=== PATIENT | female | born 1975 | race Caucasian/White ===

== ENCOUNTER 2017-02-07 20:16 | Emergency (ER) | payer OTHER ==
--- NOTE | 2017-02-07 21:15 | DIAGNOSTIC IMAGING REPORT ---
PROCEDURE: XR WRIST MIN 3 VIEWS - LEFT INDICATION: TRAUMA/INJURY TECHNIQUE: Five views. COMPARISON: None. FINDINGS: Osseous structures and joint spaces are normal. If an occult scaphoid fracture is suspected clinically, follow-up examination in 10-14 days may be of assistance. IMPRESSION: 1. Normal left wrist.
--- NOTE | 2017-02-07 21:22 | ED NURSING NOTES ---
Clinical Report - Nurses [facility] [address] [place] [address] 02/07/2017 20:17 [id number] Triage time 20:29. Chief Complaint: INJURY TO LEFT WRIST. --20:35 TonyaB, R.N. 20:29 02/07/17. BP: 118/74. HR: 87. RR: 18. O2 saturation: 100%. Temp: 98.3 F. Pain level now: 08/29. --20:35 TonyaB, R.N. Acuity: LEVEL 4. --20:35 TonyaB, R.N. Weight: 70.3 kg. Height/Length: 65 inches. BMI: 25.8. --20:32 TonyaB, R.N. Medications Advair Diskus Inhalation. Albuterol Inhalation. DuoNeb Inhalation. Furosemide Oral. Potassium Oral. PredniSONE Oral 20 mg, 2x a day, last dose this AM. Spiriva HandiHaler Inhalation. --20:31 TonyaB, R.N. Gabapentin Oral. --20:31 TonyaB, R.N. Omeprazole Oral. --20:31 TonyaB, R.N. Singulair Oral. --20:31 TonyaB, R.N. Allergies ASA. Paper tape. Paxil. --20:30 TonyaB, R.N. History Arrived by private vehicle. Historian: patient. Accompanied by family. This occurred just prior to arrival. ( got it caught in a door at home). 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 PAST MEDICAL HX: Tetanus status: up-to-date. Immunizations: up-to-date. SOCIAL HX: Never smoker. Occasional alcohol use. No drug use. No infectious disease exposure. FALL RISK ASSESSMENT: Fall risk assessment completed. No fall risk identified. NUTRITIONAL RISK ASSESSMENT: The nutritional risk assessment revealed no deficiencies. FUNCTIONAL ASSESSMENT: Functional assessment: no impairments noted. LEARNING NEEDS ASSESSMENT: The learning needs assessment revealed no barriers. SKIN INTEGRITY ASSESSMENT: Skin integrity risk assessment completed. No skin integrity risk identified. --20:35 TonyaB, R.N. ADDITIONAL SURGERIES: Hysterectomy. --20:32 Mely Ortega Interventions ID band on patient. To treatment room. --20:35 Mely Ortega PHYSICAL ASSESSMENT Ambulatory to room. GENERAL / NEURO / PSYCH: Oriented X 4. Alert. EXTREMITIES: Capillary refill is less than 2 seconds in the extremities. Extremity pulses are within normal limits. Neuro-vascular status intact to the extremity. Right wrist: tenderness and swelling. SKIN: Skin intact. Skin is warm and dry. --20:35 Mely Ortega NURSING PROGRESS NOTES 21:31 02/07/2017 Percocet (Oxycodone-Acetaminophen) PO 5/325 mg Tablets 1 tab given. Allergies verified, confirmed 5 rights and sedative warning given to the patient. --21:31 Mariama Ortega. Upper extremity splint applied to left wrist by nurse. ( w). --21:32 Mely Ortega DISPOSITION / DISCHARGE Departure time: 21:33. No learning barriers present. Discharge instructions provided and reviewed with the patient. Reviewed medication(s) side effects, precautions, dosing and course information. Prescription(s) given to the patient. Treatments reviewed. Reviewed referrals. Activity restrictions reviewed. Follow up contact number. Patient verbalized understanding. Written instructions provided in Estonian. No diet instructions, note given or stop smoking instructions. The patient was discharged by the physician dental assistant medical assistant. She was discharged home and accompanied by family. She left the Emergency Department ambulatory and via private vehicle. Family member driving. FALL RISK ASSESSMENT: Fall risk assessment completed. No fall risk identified. --21:33 Mely Ortega 21:32 02/07/17. BP: 126/78. HR: 88. RR: 18. O2 saturation: 99%. Temp: 98.7 F. Pain level now: 06/29. --21:33 Mely Ortega Locked/Released at 02/07/2017 21:37 by Mely Ortega
--- NOTE | 2017-02-07 21:22 | ED ORDER SUMMARY ---
..... Patient: TREVA POLANCO OrderSheet [facility] VisitID: [id number] [address] [place] [address] 41y, F Registration Date/Time: 02/07/2017 ORDER SHEET Weight: 70.3 kg Allergies: ASA, Paper tape, Paxil GENERAL ORDERS: Wrist 3 or 4V Left Urgent (20:43 02/07/2017 EKoroleva P.A.-C) (Ack 20:47 [facility] ER Vapor Coater) (21:25 TBowen R.N.) Splint (UE) (Left) (VELCRO WRIST) (21:03 02/07/2017 EKoroleva P.A.-C) (21:25 TBowen R.N.) MEDICATION ORDERS: Percocet PO 5/325 mg (HIGH ALERT MEDICATION) (20:43 02/07/2017 EKoroleva P.A.-C) (21:31 TBowen R.N.) IV FLUIDS: ORDER SHEET NOTES: [Electronically signed by Yas Gomez R.N. (21:37 02/07/2017)] [Electronically signed by Silvia Villegas P.A.-C (22:13 02/07/2017)] [Electronically locked/signed by Yas Gomez R.N. (21:37 02/07/2017)]
--- NOTE | 2017-02-07 21:22 | ED ORDER SUMMARY ---
..... 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 (21:37 02/07/2017)] [Electronically signed by Silvia Villegas P.A.-C (22:13 02/07/2017)] [Electronically locked/signed by Yas Gomez R.N. (21:37 02/07/2017)]
--- NOTE | 2017-02-07 21:22 | ED CLINICAL REPORT ---
Clinical Report - Physicians/Mid Levels [facility] [address] [place] [address] 02/07/2017 20:17 [id number] Time Seen: 2016. Arrived- By private vehicle. Historian- patient. HISTORY OF PRESENT ILLNESS Chief Complaint: Injury to the left wrist. The injury happened just prior to arrival. Occurred at home. The patient sustained a direct blow. ( Patient reports a large dog, got her hand caught in a doorprior to arrival. She is right-hand dominant of injury to the left wrist. Ice right to arrival. Pain with movement. No other injuries.). REVIEW OF SYSTEMS The patient sustained a laceration. She has had swelling. No tingling or weakness. All systems otherwise negative, except as recorded above. PAST HISTORY The patient's dominant hand is the right. She has not had a prior injury to the same area. SOCIAL HISTORY Never smoker. Alcohol use. No drug use. ADDITIONAL NOTES The nursing notes have been reviewed. PHYSICAL EXAM Vital Signs: 02/07/2017 20:29 BP: 118/74. HR: 87. RR: 18. O2 saturation: 100%. Temp: 98.3 F. Pain level now: 10/10. Appearance: Alert. Head: Head atraumatic. ENT: Nose normal. Neck: Normal inspection. CVS: Normal heart rate and rhythm. Heart sounds normal. Respiratory: No respiratory distress. Chest nontender. Abdomen: No visible injury. Skin: Skin warm. Skin intact. Extremities: Left wrist. (dorsal central pain with swelling, pain with any movement, no snuff box tenderness, no laceration). Left distal radius. No tenderness. Hypothenar eminence, left hand: No tenderness or laceration. Left palm: No tenderness or laceration. No hand injury. Neuro, Vascular and Tendons: Vascular status intact. No pulse deficit present. Capillary refill not prolonged. Motor intact. Neuro: Oriented X 3. LABS, X-RAYS, AND EKG Lt Wrist X-ray: (IMPRESSION: 1. Normal left wrist. Electronically Final signed by:Marin Montreo MD 02/07/2017 9:12:25 PM). PROGRESS AND PROCEDURES Splint Application: Left wrist Velcro, ns intact post applicatin. Course of Care: patient placed in a splint for calm, stable, no snuffbox tenderness. Neg xr, and no signs of fx, or underlying laceration, or secondary sign of infection. Patient is stable. Physical exam findings are improved. Symptoms better. Patient/family counseled. Disposition: Discharged. CLINICAL IMPRESSION Contusion to the left wrist. INSTRUCTIONS Apply ice. Elevate affected areas above chest level. Limit use of your left hand for five days. Prescription Medications: Hydrocodone/APAP 5mg / 325mg: take 1 orally every 8 hours as needed for pain. Dispense twelve (12). No refill. Follow-up: Follow up with your doctor in five days as needed. (Electronically signed by Silvia Villegas P.A.-C 02/07/2017 22:13)
--- NOTE | 2017-02-07 21:22 | ED CLINICAL REPORT ---
Clinical Report - Physicians/Mid Levels [facility] [address] [place] [address] 02/07/2017 20:17 [id number] Time Seen: 2016. Arrived- By private vehicle. Historian- patient. HISTORY OF PRESENT ILLNESS Chief Complaint: Injury to the left wrist. The injury happened just prior to arrival. Occurred at home. The patient sustained a direct blow. ( Patient reports a large dog, got her hand caught in a doorprior to arrival. She is right-hand dominant of injury to the left wrist. Ice right to arrival. Pain with movement. No other injuries.). REVIEW OF SYSTEMS The patient sustained a laceration. She has had swelling. No tingling or weakness. All systems otherwise negative, except as recorded above. PAST HISTORY The patient's dominant hand is the right. She has not had a prior injury to the same area. SOCIAL HISTORY Never smoker. Alcohol use. No drug use. ADDITIONAL NOTES The nursing notes have been reviewed. PHYSICAL EXAM Vital Signs: 02/07/2017 20:29 BP: 118/74. HR: 87. RR: 18. O2 saturation: 100%. Temp: 98.3 F. Pain level now: 10/10. Appearance: Alert. Head: Head atraumatic. ENT: Nose normal. Neck: Normal inspection. CVS: Normal heart rate and rhythm. Heart sounds normal. Respiratory: No respiratory distress. Chest nontender. Abdomen: No visible injury. Skin: Skin warm. Skin intact. Extremities: Left wrist. (dorsal central pain with swelling, pain with any movement, no snuff box tenderness, no laceration). Left distal radius. No tenderness. Hypothenar eminence, left hand: No tenderness or laceration. Left palm: No tenderness or laceration. No hand injury. Neuro, Vascular and Tendons: Vascular status intact. No pulse deficit present. Capillary refill not prolonged. Motor intact. Neuro: Oriented X 3. LABS, X-RAYS, AND EKG Lt Wrist X-ray: (IMPRESSION: 1. Normal left wrist. Electronically Final signed by:Marin Montero MD 02/07/2017 9:12:25 PM). PROGRESS AND PROCEDURES Splint Application: Left wrist Velcro, ns intact post applicatin. Course of Care: patient placed in a splint for calm, stable, no snuffbox tenderness. Neg xr, and no signs of fx, or underlying laceration, or secondary sign of infection. Patient is stable. Physical exam findings are improved. Symptoms better. Patient/family counseled. Disposition: Discharged. CLINICAL IMPRESSION Contusion to the left wrist. INSTRUCTIONS Apply ice. Elevate affected areas above chest level. Limit use of your left hand for five days. Prescription Medications: Hydrocodone/APAP 5mg / 325mg: take 1 orally every 8 hours as needed for pain. Dispense twelve (12). No refill. Follow-up: Follow up with your doctor in five days as needed. (Electronically signed by Silvia Villegas P.A.-C 02/07/2017 22:13)
--- NOTE | 2017-02-07 21:22 | ED NURSING NOTES ---
Clinical Report - Nurses [facility] [address] [place] [address] 02/07/2017 20:17 [id number] Triage time 20:29. Chief Complaint: INJURY TO LEFT WRIST. --20:35 TonyaB, R.N. 20:29 02/07/17. BP: 118/74. HR: 87. RR: 18. O2 saturation: 100%. Temp: 98.3 F. Pain level now: 08/29. --20:35 TonyaB, R.N. Acuity: LEVEL 4. --20:35 TonyaB, R.N. Weight: 70.3 kg. Height/Length: 65 inches. BMI: 25.8. --20:32 TonyaB, R.N. Medications Advair Diskus Inhalation. Albuterol Inhalation. DuoNeb Inhalation. Furosemide Oral. Potassium Oral. PredniSONE Oral 20 mg, 2x a day, last dose this AM. Spiriva HandiHaler Inhalation. --20:31 TonyaB, R.N. Gabapentin Oral. --20:31 TonyaB, R.N. Omeprazole Oral. --20:31 TonyaB, R.N. Singulair Oral. --20:31 TonyaB, R.N. Allergies ASA. Paper tape. Paxil. --20:30 TonyaB, R.N. History Arrived by private vehicle. Historian: patient. Accompanied by family. This occurred just prior to arrival. ( got it caught in a door at home). 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 PAST MEDICAL HX: Tetanus status: up-to-date. Immunizations: up-to-date. SOCIAL HX: Never smoker. Occasional alcohol use. No drug use. No infectious disease exposure. FALL RISK ASSESSMENT: Fall risk assessment completed. No fall risk identified. NUTRITIONAL RISK ASSESSMENT: The nutritional risk assessment revealed no deficiencies. FUNCTIONAL ASSESSMENT: Functional assessment: no impairments noted. LEARNING NEEDS ASSESSMENT: The learning needs assessment revealed no barriers. SKIN INTEGRITY ASSESSMENT: Skin integrity risk assessment completed. No skin integrity risk identified. --20:35 TonyaB, R.N. ADDITIONAL SURGERIES: Hysterectomy. --20:32 Mely Ortega Interventions ID band on patient. To treatment room. --20:35 Mely Ortega PHYSICAL ASSESSMENT Ambulatory to room. GENERAL / NEURO / PSYCH: Oriented X 4. Alert. EXTREMITIES: Capillary refill is less than 2 seconds in the extremities. Extremity pulses are within normal limits. Neuro-vascular status intact to the extremity. Right wrist: tenderness and swelling. SKIN: Skin intact. Skin is warm and dry. --20:35 Mely Ortega NURSING PROGRESS NOTES 21:31 02/07/2017 Percocet (Oxycodone-Acetaminophen) PO 5/325 mg Tablets 1 tab given. Allergies verified, confirmed 5 rights and sedative warning given to the patient. --21:31 Mariama Ortega. Upper extremity splint applied to left wrist by nurse. ( w). --21:32 Mely Ortega DISPOSITION / DISCHARGE Departure time: 21:33. No learning barriers present. Discharge instructions provided and reviewed with the patient. Reviewed medication(s) side effects, precautions, dosing and course information. Prescription(s) given to the patient. Treatments reviewed. Reviewed referrals. Activity restrictions reviewed. Follow up contact number. Patient verbalized understanding. Written instructions provided in Korean. No diet instructions, note given or stop smoking instructions. The patient was discharged by the physician language assistant. She was discharged home and accompanied by family. She left the Emergency Department ambulatory and via private vehicle. Family member driving. FALL RISK ASSESSMENT: Fall risk assessment completed. No fall risk identified. --21:33 Mely Ortega 21:32 02/07/17. BP: 126/78. HR: 88. RR: 18. O2 saturation: 99%. Temp: 98.7 F. Pain level now: 06/29. --21:33 Mely Ortega Locked/Released at 02/07/2017 21:37 by Mely Ortega
--- NOTE | 2017-02-07 22:13 | ED DISCHARGE INSTRUCTIONS ---
Patient: TREVA POLANCO General Instructions [facility] VisitID: [id number] [place] [address] 41y, F Registration Date/Time: 02/07/2017 Contusion to the left wrist. INSTRUCTIONS Apply ice. Elevate affected areas above chest level. Limit use of your left hand for five days. Prescription Medications: Hydrocodone/APAP 5mg / 325mg: take 1 orally every 8 hours as needed for pain. Dispense twelve (12). No refill. Follow-up: Follow up with your doctor in five days as needed. ADDITIONAL INFORMATION Contusion:Upper Extremity You have a contusion of your upper extremity (arm, wrist, hand or fingers). This causes local pain, swelling and sometimes bruising. There are no broken bones. This injury takes a few days to a few weeks to heal. A sling may be provided for comfort and arm support. Home Care: 1) Keep your arm elevated to reduce pain and swelling. This is very important during the first 48 hours. 2) Apply an ice pack (ice cubes in a plastic bag, wrapped in a towel) over the injured area for 20 minutes every 1-2 hours the first day for pain relief. Continue this 3-4 times a day until the pain and swelling goes away. 3) You may use acetaminophen (Tylenol) or ibuprofen (Motrin, Advil) to control pain, unless another pain medicine was prescribed. [ NOTE : If you have chronic liver or kidney disease or ever had a stomach ulcer or GI bleeding, talk with your doctor before using these medicines.] 4) If a sling was provided, you may remove it to shower or bathe. Do not wear it for more than one week or it may cause joint stiffness. Follow Up with your doctor or this facility if you are not starting to improve within the next THREE days. [NOTE: If X-rays were taken, they will be reviewed by a radiologist. You will be notified of any new findings that may affect your care.] Get Prompt Medical Attention if any of the following occur: -- Pain or swelling increases -- Redness, warmth or drainage -- Hand or fingers becomes cold, blue, numb or tingly Contusion: Hand You have a CONTUSION of your hand. This causes local pain, swelling and sometimes bruising. There are no broken bones. This injury takes from a few days to a few weeks to heal. Home Care: 1) Keep your arm elevated to reduce pain and swelling. This is very important during the first 48 hours. 2) Apply an ice pack (ice cubes in a plastic bag, wrapped in a towel) over the injured area for 20 minutes every 1-2 hours the first day. You should continue with ice packs 3-4 times a day for the next two days. Continue the use of ice packs for relief of pain and swelling as needed. 3) You may use acetaminophen (Tylenol) or ibuprofen (Motrin, Advil) to control pain, unless another pain medicine was prescribed. [ NOTE : If you have chronic liver or kidney disease or ever had a stomach ulcer or GI bleeding, talk with your doctor before using these medicines.] Follow Up with your doctor or this facility if you are not starting to improve within the next THREE days. [NOTE: If X-rays were taken, they will be reviewed by a radiologist. You will be notified of any new findings that may affect your care.] Get Prompt Medical Attention if any of the following occur: -- Pain or swelling increases -- Redness, warmth or drainage -- Hand or fingers becomes cold, blue, numb or tingly Hydrocodone Bitartrate, Acetaminophen Oral tablet What is this medicine? ACETAMINOPHEN; HYDROCODONE (a set a SERINA luis fen; feliciano droe KOE done) is a pain reliever. It is used to treat mild to moderate pain. How should I use this medicine? Take this medicine by mouth. Swallow it with a full glass of water. Follow the directions on the prescription label. If the medicine upsets your stomach, take the medicine with food or milk. Do not take more than you are told to take. Talk to your dental laboratory assistant regarding the use of this medicine in children. This medicine is not approved for use in children. What side effects may I notice from receiving this medicine? Side effects that you should report to your doctor or health home care coordinator as soon as possible: allergic reactions like skin rash, itching or hives, swelling of the face, lips, or tongue breathing problems confusion feeling faint or lightheaded, falls stomach pain yellowing of the eyes or skin Side effects that usually do not require medical attention (report to your doctor or health home care coordinator if they continue or are bothersome): nausea, vomiting stomach upset What may interact with this medicine? alcohol antihistamines isoniazid medicines for depression, anxiety, or psychotic disturbances medicines for sleep muscle relaxants naltrexone narcotic medicines (opiates) for pain phenobarbital ritonavir tramadol What if I miss a dose? If you miss a dose, take it as soon as you can. If it is almost time for your next dose, take only that dose. Do not take double or extra doses. Where should I keep my medicine? Keep out of the reach of children. This medicine can be abused. Keep your medicine in a safe place to protect it from theft. Do not share this medicine with anyone. Selling or giving away this medicine is dangerous and against the law. Store at room temperature between 15 and 30 degrees C (59 and 86 degrees F). Protect from light. Keep container tightly closed. Throw away any unused medicine after the expiration date. Discard unused medicine and used packaging carefully. Pets and children can be harmed if they find used or lost packages. What should I tell my health care provider before I take this medicine? They need to know if you have any of these conditions: brain tumor Crohn's disease, inflammatory bowel disease, or ulcerative colitis drink more than 3 alcohol-containing drinks per day drug abuse or addiction head injury heart or circulation problems kidney disease or problems going to the bathroom liver disease lung disease, asthma, or breathing problems an unusual or allergic reaction to acetaminophen, hydrocodone, other opioid analgesics, other medicines, foods, dyes, or preservatives or trying to get breast-feeding What should I watch for while using this medicine? Tell your doctor or health home care coordinator if your pain does not go away, if it gets worse, or if you have new or a different type of pain. You may develop tolerance to the medicine. Tolerance means that you will need a higher dose of the medicine for pain relief. Tolerance is normal and is expected if you take the medicine for a long time. Do not suddenly stop taking your medicine because you may develop a severe reaction. Your body becomes used to the medicine. This does NOT mean you are addicted. Addiction is a behavior related to getting and using a drug for a non-medical reason. If you have pain, you have a medical reason to take pain medicine. Your doctor will tell you how much medicine to take. If your doctor wants you to stop the medicine, the dose will be slowly lowered over time to avoid any side effects. You may get drowsy or dizzy when you first start taking the medicine or change doses. Do not drive, use machinery, or do anything that may be dangerous until you know how the medicine affects you. Stand or sit up slowly. There are different types of narcotic medicines (opiates) for pain. If you take more than one type at the same time, you may have more side effects. Give your health care provider a list of all medicines you use. Your doctor will tell you how much medicine to take. Do not take more medicine than directed. Call emergency for help if you have problems breathing. The medicine will cause constipation. Try to have a bowel movement at least every 2 to 3 days. If you do not have a bowel movement for 3 days, call your doctor or health home care coordinator. Too much acetaminophen can be very dangerous. Do not take Tylenol (acetaminophen) or medicines that contain acetaminophen with this medicine. Many non-prescription medicines contain acetaminophen. Always read the labels carefully. You have been given the following additional information: Contusion, Upper Extremity Contusion, Hand Hydrocodone Bitartrate, Acetaminophen Oral tablet Limit use of your left hand for five days. (Electronically signed by Silvia Villegas P.A.-C 02/07/2017 22:13)
--- NOTE | 2017-02-07 22:13 | ED MAR SUMMARY ---
..... Medication Administration Record [facility] [address] [place] [address] Patient: TREVA POLANCO Visit ID: [id number] 41y, F Weight: 70.3 kg Height/Length: 65 in BMI: 25.8 ALLERGIES: ASA, Paper tape, Paxil Given 21:31 02/07/2017 Mely Ortega Medication Administered: PERCOCET [PO] (OXYCODONE-ACETAMINOPHEN), Dose: 1 tab 5/325 mg Tablets PO. Medication Ordered: Percocet PO 5/325 mg (HIGH ALERT MEDICATION).
--- NOTE | 2017-02-07 22:13 | ED MAR SUMMARY ---
..... Medication Administration Record [facility] [address] [place] [address] Patient: TREVA POLANCO Visit ID: [id number] 41y, F Weight: 70.3 kg Height/Length: 65 in BMI: 25.8 ALLERGIES: ASA, Paper tape, Paxil Given 21:31 02/07/2017 Mely Ortega Medication Administered: PERCOCET [PO] (OXYCODONE-ACETAMINOPHEN), Dose: 1 tab 5/325 mg Tablets PO. Medication Ordered: Percocet PO 5/325 mg (HIGH ALERT MEDICATION).
--- NOTE | 2017-02-07 22:13 | ED MED RECONCILIATION SUMMARY ---
Patient: TREVA POLANCO Medication Reconciliation Report [facility] VisitID: [id number] [address] [place] [address] 41y, F Registration Date/Time: 02/07/2017 Weight: 70.3 kg Height/Length: 65 in. BMI: 25.8 ALLERGIES: ASA, Paper tape, Paxil The patient's Home Medications are listed below: THE FOLLOWING MEDICATIONS NEED TO BE RECONCILED: Advair Diskus Inhalation Albuterol Inhalation DuoNeb Inhalation Furosemide Oral Gabapentin Oral Omeprazole Oral Potassium Oral PredniSONE Oral 20 mg, 2x a day, last dose this AM Singulair Oral Spiriva HandiHaler Inhalation The source(s) of the original Home Medication information: Not obtained. The following Medications were given to the patient in the Emergency Department: Percocet [PO] PO 1 tab, administered: 02/07/2017 9:31:00 PM The following Medications were prescribed to the patient: Hydrocodone/APAP 5mg / 325mg: take 1 orally every 8 hours as needed for pain. Dispense twelve (12). No refill. -- Silvia Villegas PZane
--- NOTE | 2017-02-07 22:13 | ED DISCHARGE INSTRUCTIONS ---
Patient: TREVA POLANCO General Instructions [facility] VisitID: [id number] [place] [address] 41y, F Registration Date/Time: 02/07/2017 Contusion to the left wrist. INSTRUCTIONS Apply ice. Elevate affected areas above chest level. Limit use of your left hand for five days. Prescription Medications: Hydrocodone/APAP 5mg / 325mg: take 1 orally every 8 hours as needed for pain. Dispense twelve (12). No refill. Follow-up: Follow up with your doctor in five days as needed. ADDITIONAL INFORMATION Contusion:Upper Extremity You have a contusion of your upper extremity (arm, wrist, hand or fingers). This causes local pain, swelling and sometimes bruising. There are no broken bones. This injury takes a few days to a few weeks to heal. A sling may be provided for comfort and arm support. Home Care: 1) Keep your arm elevated to reduce pain and swelling. This is very important during the first 48 hours. 2) Apply an ice pack (ice cubes in a plastic bag, wrapped in a towel) over the injured area for 20 minutes every 1-2 hours the first day for pain relief. Continue this 3-4 times a day until the pain and swelling goes away. 3) You may use acetaminophen (Tylenol) or ibuprofen (Motrin, Advil) to control pain, unless another pain medicine was prescribed. [ NOTE : If you have chronic liver or kidney disease or ever had a stomach ulcer or GI bleeding, talk with your doctor before using these medicines.] 4) If a sling was provided, you may remove it to shower or bathe. Do not wear it for more than one week or it may cause joint stiffness. Follow Up with your doctor or this facility if you are not starting to improve within the next THREE days. [NOTE: If X-rays were taken, they will be reviewed by a radiologist. You will be notified of any new findings that may affect your care.] Get Prompt Medical Attention if any of the following occur: -- Pain or swelling increases -- Redness, warmth or drainage -- Hand or fingers becomes cold, blue, numb or tingly Contusion: Hand You have a CONTUSION of your hand. This causes local pain, swelling and sometimes bruising. There are no broken bones. This injury takes from a few days to a few weeks to heal. Home Care: 1) Keep your arm elevated to reduce pain and swelling. This is very important during the first 48 hours. 2) Apply an ice pack (ice cubes in a plastic bag, wrapped in a towel) over the injured area for 20 minutes every 1-2 hours the first day. You should continue with ice packs 3-4 times a day for the next two days. Continue the use of ice packs for relief of pain and swelling as needed. 3) You may use acetaminophen (Tylenol) or ibuprofen (Motrin, Advil) to control pain, unless another pain medicine was prescribed. [ NOTE : If you have chronic liver or kidney disease or ever had a stomach ulcer or GI bleeding, talk with your doctor before using these medicines.] Follow Up with your doctor or this facility if you are not starting to improve within the next THREE days. [NOTE: If X-rays were taken, they will be reviewed by a radiologist. You will be notified of any new findings that may affect your care.] Get Prompt Medical Attention if any of the following occur: -- Pain or swelling increases -- Redness, warmth or drainage -- Hand or fingers becomes cold, blue, numb or tingly Hydrocodone Bitartrate, Acetaminophen Oral tablet What is this medicine? ACETAMINOPHEN; HYDROCODONE (a set a SERINA luis fen; feliciano droe KOE done) is a pain reliever. It is used to treat mild to moderate pain. How should I use this medicine? Take this medicine by mouth. Swallow it with a full glass of water. Follow the directions on the prescription label. If the medicine upsets your stomach, take the medicine with food or milk. Do not take more than you are told to take. Talk to your supervisor assembly and packing regarding the use of this medicine in children. This medicine is not approved for use in children. What side effects may I notice from receiving this medicine? Side effects that you should report to your doctor or health daytime caregiver as soon as possible: allergic reactions like skin rash, itching or hives, swelling of the face, lips, or tongue breathing problems confusion feeling faint or lightheaded, falls stomach pain yellowing of the eyes or skin Side effects that usually do not require medical attention (report to your doctor or health daytime caregiver if they continue or are bothersome): nausea, vomiting stomach upset What may interact with this medicine? alcohol antihistamines isoniazid medicines for depression, anxiety, or psychotic disturbances medicines for sleep muscle relaxants naltrexone narcotic medicines (opiates) for pain phenobarbital ritonavir tramadol What if I miss a dose? If you miss a dose, take it as soon as you can. If it is almost time for your next dose, take only that dose. Do not take double or extra doses. Where should I keep my medicine? Keep out of the reach of children. This medicine can be abused. Keep your medicine in a safe place to protect it from theft. Do not share this medicine with anyone. Selling or giving away this medicine is dangerous and against the law. Store at room temperature between 15 and 30 degrees C (59 and 86 degrees F). Protect from light. Keep container tightly closed. Throw away any unused medicine after the expiration date. Discard unused medicine and used packaging carefully. Pets and children can be harmed if they find used or lost packages. What should I tell my health care provider before I take this medicine? They need to know if you have any of these conditions: brain tumor Crohn's disease, inflammatory bowel disease, or ulcerative colitis drink more than 3 alcohol-containing drinks per day drug abuse or addiction head injury heart or circulation problems kidney disease or problems going to the bathroom liver disease lung disease, asthma, or breathing problems an unusual or allergic reaction to acetaminophen, hydrocodone, other opioid analgesics, other medicines, foods, dyes, or preservatives or trying to get breast-feeding What should I watch for while using this medicine? Tell your doctor or health daytime caregiver if your pain does not go away, if it gets worse, or if you have new or a different type of pain. You may develop tolerance to the medicine. Tolerance means that you will need a higher dose of the medicine for pain relief. Tolerance is normal and is expected if you take the medicine for a long time. Do not suddenly stop taking your medicine because you may develop a severe reaction. Your body becomes used to the medicine. This does NOT mean you are addicted. Addiction is a behavior related to getting and using a drug for a non-medical reason. If you have pain, you have a medical reason to take pain medicine. Your doctor will tell you how much medicine to take. If your doctor wants you to stop the medicine, the dose will be slowly lowered over time to avoid any side effects. You may get drowsy or dizzy when you first start taking the medicine or change doses. Do not drive, use machinery, or do anything that may be dangerous until you know how the medicine affects you. Stand or sit up slowly. There are different types of narcotic medicines (opiates) for pain. If you take more than one type at the same time, you may have more side effects. Give your health care provider a list of all medicines you use. Your doctor will tell you how much medicine to take. Do not take more medicine than directed. Call emergency for help if you have problems breathing. The medicine will cause constipation. Try to have a bowel movement at least every 2 to 3 days. If you do not have a bowel movement for 3 days, call your doctor or health daytime caregiver. Too much acetaminophen can be very dangerous. Do not take Tylenol (acetaminophen) or medicines that contain acetaminophen with this medicine. Many non-prescription medicines contain acetaminophen. Always read the labels carefully. You have been given the following additional information: Contusion, Upper Extremity Contusion, Hand Hydrocodone Bitartrate, Acetaminophen Oral tablet Limit use of your left hand for five days. (Electronically signed by Silvia Villegas P.A.-C 02/07/2017 22:13)
--- NOTE | 2017-02-07 22:13 | ED MED RECONCILIATION SUMMARY ---
Patient: TREVA POLANCO Medication Reconciliation Report [facility] VisitID: [id number] [address] [place] [address] 41y, F Registration Date/Time: 02/07/2017 Weight: 70.3 kg Height/Length: 65 in. BMI: 25.8 ALLERGIES: ASA, Paper tape, Paxil The patient's Home Medications are listed below: THE FOLLOWING MEDICATIONS NEED TO BE RECONCILED: Advair Diskus Inhalation Albuterol Inhalation DuoNeb Inhalation Furosemide Oral Gabapentin Oral Omeprazole Oral Potassium Oral PredniSONE Oral 20 mg, 2x a day, last dose this AM Singulair Oral Spiriva HandiHaler Inhalation The source(s) of the original Home Medication information: Not obtained. The following Medications were given to the patient in the Emergency Department: Percocet [PO] PO 1 tab, administered: 02/07/2017 9:31:00 PM The following Medications were prescribed to the patient: Hydrocodone/APAP 5mg / 325mg: take 1 orally every 8 hours as needed for pain. Dispense twelve (12). No refill. -- Silvia Villegas PZane
== END 2017-02-07 21:33 | disposition home or self-care (01) ==
LOC: ED SRH 20:16
DX: S60.212A Contusion of left wrist, initial encounter (principal); W23.1XXA Caught, crushed, jammed, or pinched between stationary objects, initial encounter; Y93.9 Activity, unspecified; Y92.009 Unspecified place in unspecified non-institutional (private) residence as the place of occurrence of the external cause; Y99.8 Other external cause status; Z79.899 Other long term (current) drug therapy; Z88.8 Allergy status to other drugs, medicaments and biological substances